=== PATIENT | male | born 1950 | race Caucasian/White ===

== ENCOUNTER 2024-06-01 06:44 | Observation (INO) ==
--- NOTE | 2024-05-21 11:32 | Anesthesiology Consultation ---
Date of Service May 21, 2024 Assessment & Plan (1) Encounter for pre-operative examination: Chart Review Chart Review: Acceptable Risk for Surgery and Patient NOT seen in Pre Admission Testing -Pt seen by KATHIA Cardio 04/06/24. Per note, "The patient is an acceptable cardiac risk to undergo a prostatectomy if that course of therapy for his prostate cancer is chosen." Infectious Disease screening: Per PAT nursing assessment on 05/21/24, No known infectious disease contacts in past 10 days or current infectious disease symptoms. No recent travel outside the country. History Surgery Operation Date: 06/01/24 07:30 Proposed Procedures p Robotic Assisted Laparoscopic Radical Retropubic Prostatectomy, Possible Open, Possible Pelvic Lymph Node Dissection - Marvel Thomson MD Height/Weight Height: 5 ft 10 in Weight: 76.204 kg Allergies Allergy/AdvReac Type Severity Reaction Status Date / Time ezetimibe [From Zetia] AdvReac Mild lose BM Verified 05/21/24 10:46 Medications Home Medications Medication Instructions Recorded Confirmed Last Taken aspirin 81 mg tablet 81 mg PO QAM 12/15/18 05/21/24 Unknown tadalafil 10 mg tablet 10 mg PO .COMPLEX PRN sexual 09/24/23 05/21/24 Unknown activity #18 tabs multivitamin 1 tab PO DAILY 03/15/24 05/21/24 Unknown evolocumab 140 mg/mL subcutaneous 140 mg subcut .q 2week #2 mL 05/10/24 05/21/24 Unknown pen injector (Catherine Wall) atorvastatin 80 mg tablet 80 mg PO QPM 05/21/24 05/21/24 Unknown olmesartan 20 mg tablet 40 mg PO QPM 05/21/24 05/21/24 Unknown Past Medical History Medical History (Updated 05/21/24 @ 11:35 by Suha Frost PA-C) Actinic keratosis, hx of BPH (benign prostatic hyperplasia) Chronic hoarseness Coronary artery disease s/p NSTEMI and prox LAD stent 01/2001 GERD (gastroesophageal reflux disease) History of COVID-19 09/2023; tx with antiviral by PCP Hyperlipidemia Hypertension Past history of myocardial infarction (01/2001) Prostate cancer dx 02/2024 Syncope (09/28/13) pt denies Past Family History Family History Father Pancreatic cancer Brother Diabetes Family/Other Vocal cord polyp Grandfather (Paternal) Myocardial infarction Sister Stroke Denies family history of Ovarian cancer Prostate cancer Breast cancer Lung cancer Colorectal cancer Past Surgical History Surgical History History of wisdom tooth extraction S/P coronary artery stent placement Proximal LAD 2000 done at [facility] S/P excision of vocal cord nodule S/P vasectomy Social History Smoking Status: Never smoker Do You Dip or Chew Tobacco: No Hx Alcohol Use: Yes Alcohol type: beer alcohol intake frequency: a few times a week Hx Substance Use: No substance use type: does not use Lab Results Anesthesia Preop Results Results Anesthesia Widget: WBC 6.53 K/ul (4.8-10.8) 05/12/24 Hgb 14.7 g/dl (14.0-18.0) 05/12/24 Hct 43.6 % (42.0-52.0) 05/12/24 Plt 164 K/uL (130-400) 05/12/24 Na 141 mmol/L (136-145) 05/12/24 K 4.0 mmol/L (3.5-5.1) 05/12/24 Cl 107 mmol/L (98-107) 05/12/24 CO2 30 mmol/L (21-32) 05/12/24 BUN 22 mg/dl (6-23) 05/12/24 Creat 1.05 mg/dl (0.6-1.4) 05/12/24 Glucose Level 99 mg/dl (70-99(Fasting)) 05/12/24 Testing Laboratory Results 05/12/24 urine culture: no growth Electrocardiogram Date: 05/12/24 Findings: + SB @ (57bpm) Chest X-Ray Date: 05/12/24 Findings: + NAD Other Testing Carotid Duplex 07/23/21: 1. <50% stenosis B/L ICAs 2. Antegrade flow b/l vertebrals Cardiac Cath 02/02/2001: (Per Cardio Note): Cardiac catheterization performed at [facility] 02/02/2001 revealed a severe proximal LAD stenosis. 50-80% long proximal LAD stenosis. No significant disease in the remainder of the LAD, right coronary artery, or left circumflex coronary artery. LV angiography with mild anterolateral hypokinesis. 4.0 x 23 mm stent deployed in proximal LAD 02/03/2001. Performed at the [facility].
--- NOTE | 2024-06-01 07:15 | History & Physical Bridge Note ---
Date of Service June 01, 2024 History & Physical Bridge Note I have examined the patient, reviewed the History & Physical and in the interval since the performance of the History & Physical I have noted the following changes of clinical significance: no changes noted
[2024-06-01] MEDS: LR 15ML/HR IV SCH (07:16)
[2024-06-01] MEDS ORDERED: PROPOFOL IV EMULSION 10 MG/ML 20 ML VIAL IV ONE ×3 (07:20→10:52)
[2024-06-01] MEDS ORDERED: MIDAZOLAM HCL 1 MG/ML 2ML VIAL ONE (07:20)
[2024-06-01] MEDS ORDERED: LIDOCAINE 2% 2 ML VIAL/AMP(20MG/ML) INFIL ONE ×2 (07:20→07:21)
[2024-06-01] MEDS ORDERED: fentaNYL citrate PF 100 MCG/2 ML VIAL ONE ×2 (07:20→10:02)
[2024-06-01] MEDS ORDERED: ROCURONIUM BROMIDE 10 MG/ML 5 ML VIAL IV ONE ×2 (07:20→10:21)
[2024-06-01] MEDS ORDERED: DEXAMETHASONE SOD INJ 4 MG/ML VIAL ONE (07:21)
[2024-06-01] MEDS ORDERED: ONDANSETRON INJ 2 MG/ML 2 ML VIAL ONE ×2 (07:21→11:59)
[2024-06-01] MEDS ORDERED: ePHEDrine sulfate 50 MG/ML AMP ONE (07:32)
[2024-06-01] MEDS ORDERED: ACETAMINOPHEN 1000 MG/100 ML IV IV ONE (07:37)
[2024-06-01] MEDS ORDERED: ATROPINE SULFATE 0.1 MG/ML 10ML SYR IV PRN (07:38)
[2024-06-01] MEDS ORDERED: ONDANSETRON INJ 2 MG/ML 2 ML VIAL IV PRN (07:38)
[2024-06-01] MEDS ORDERED: ePHEDrine sulfate 50 MG/ML AMP IV PRN (07:38)
[2024-06-01] MEDS: HEPARIN SOD (PORCINE) 5,000 UNITS/ML VIAL SQ SCH (07:42)
--- OUTSIDE RECORDS SUMMARY | 2024-06-01 07:49 | External Medical Summary | Continuity of Care Document ---
Author Name Unknown Organization [id number] Address [address] [place] [id number] Care Team Providers Care Trolley Car Operator Name Role Phone Dina Guerrero Primary Care Physician [phone] [id number] Date(s): 05/25/24 - 05/25/24 [facility] [address] [place] [id number] [facility] [address] [place] [id number] Encounter Diagnosis Left shoulder pain(Discharge Diagnosis) - 05/25/24 Discharge Disposition: Home or Self Care Attending Physician: MD Benedict Dov A Encounter Type: Clinic Allergies, Adverse Reactions, Alerts No Known Allergies Assessment and Plan Extracted from: Title:Aureliano Benedict Author:Arely Clarke Date: IMPRESSION: left shoulder pa in concern for rotator cuff injury GOAL: Decrease pain PLAN: After a lengthy discussion with the patient today regarding my above clinical findings, - RICE. - They may use Tylenol as needed for pain. - Recommend working on shoulder ROM with pendulums as demonstrated - Ordered an MRI of the left shoulder to evaluate for rotator cuff tear due to acute decreased ROM and positive drop arm. Treatment options discussed may include cortisone injection and PT vs surgery. - Follow-up after MRI The patient understood all my instructions and explanations; all their questions were satisfactorily addressed. Medications aspirin 81 mg oral tablet Start: 10/21/12 9:25:00 AM EDT, 1 tab, PO, Daily Start Date: 10/21/12 Status: Ordered Repeat number: 1 GaviLyte-C oral powder for reconstitution Start: 06/25/22 1:52:00 PM EDT Start Date: 06/25/22 Status: Ordered Repeat number: 1 Lipitor 80 mg oral tablet Start: 10/21/12 9:24:00 AM EDT, 1 tab, PO, Daily Start Date: 10/21/12 Status: Ordered Repeat number: 1 Repatha SureClick 140 mg/mL subcutaneous solution Start: 06/25/22 1:51:00 PM EDT, 140 mg = Start Date: 06/25/22 Status: Ordered Repeat number: 1 Suprep Bowel Prep Kit 1.6 g-3.13 g-17.5 g/177 mL oral liquid Start: 01/23/24 3:38:00 PM EDT, See Instructions, Disp# 354 mL, Refills: 0, Take as directed., Pharmacy: [facility]/pharmacy #[id number] Start Date: 01/23/24 Status: Ordered Quantity: 354.0 Unit: mL Repeat number: 1 Suprep Bowel Prep Kit oral liquid Start: 10/29/22 3:49:00 PM EDT, See Instructions, Disp# 1 kit, Refills: 0, Take as directed., Pharmacy: [facility] #[id number] Start Date: 10/29/22 Status: Ordered Quantity: 1.0 Unit: kit Repeat number: 1 tadalafil 10 mg oral tablet Start: 09/22/18 8:07:00 PM EDT, 1 tab, PO, Daily, PRN: as needed for erectile dysfunction Start Date: 09/22/18 Status: Ordered Repeat number: 1 Mental Status 05/25/24 Barriers to Learning one year None evide nt Mandatory Health Literacy Documentation Yes Health Literacy Communication Barriers N ever Primary Language Yemeni Problem List Condition Confirmation Course Effective Dates Status Health St atus Informant Achilles tendinitis, right leg Confirmed Active Acid reflux Confirmed Active Multiple nevi Confirmed Active CNH (chondrodermatitis nodularis helicis) Confirmed Active CAD (coronary artery disease) Confirmed Active History of actinic keratoses Confirmed Active HTN (hypertension) Confirmed Active High cholesterol Confirmed Active ED (erectile dysfunction) Confirmed Active Actinic keratoses Confirmed Active Tinea unguium Confirmed Active Left shoulder pain Confirmed Active Colon polyp Confirmed Active 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 Right elbow pain Confirmed 06/11/10 Active Seborrheic keratosis Confirmed Active Sun-damaged skin Confirmed Active Diagnosis Diagnosis Type Effective Dates Health Status inical Service Informant Left shoulder pain Discharge Diagnosis 05/25/24 Procedures Procedure Date Related Diagnosis Body Site Status Colonoscopy 1, 2, 3 02/05/24 Compl eted Colonoscopy 4, 5, 6 07/01/23 Compl eted Colonoscopy 7, 8 10/16/21 Complete d Vocal cord Surgery 2001 Comp leted Stent 2000 Completed Vasectomy 2000 Completed 1A) Colon polyp at 40 cm, polypectomy: Colonic mucosa with lymphoid aggregate and slight crypt hyperplasia, negative for dysplasia or malignancy. B) Rectosigmoid colon polyp, polypectomy: Segments of hyperplastic polyp. 2- One 3 mm polyp at 40 cm proximal to the anus, removed with a cold biopsy forceps. Resected and retrieved. - Three 2 to 3 mm polyps at the recto-sigmoid colon, removed with a cold biopsy forceps. Resected and retrieved. - A tattoo was seen in the transverse colon and at the hepatic flexure. - The examination was otherwise normal on direct and retroflexion views. 3Repeat colonoscopy in 1 year. 4Hepatic flexure polyp, polypectomy Sessile serrated polyp 5- One 12 mm polyp at the hepatic flexure, removed piecemeal using a hot snare. Resected and retrieved. This was located near the previous tattoo site. - At tattoo was noted in the transverse colon. The scar was not seen but no polyp was noted. - The examination was otherwise normal on direct and retroflexion views. 6Repeat colonoscopy in 6 months because polyp was removed piecemeal. 7COLO to cecum, 7 polyps total. 5 removed and 2 large ones bx and tattoo 8Pathology: Hepatic flexure polyp: segments of sessile serrated polyp Transverse colon polyp: Colonic mucosa with no evidence of neoplasia. Transverse colon polyp-large: Sessile serrated polyp. Colon polyps at 60 cm: Segments of sessile serrated polyp with focal cytologic atypia. Conon Polyp at 50 cm: segments of sessile serrated polyp. 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 He complains of shoulder pain starting 2 weeks ago when he fell down the stairs, reaching backwith his left shoulder to catch himself. In the past week he developed aching pain while sleeping and is now sleeping in a recliner which seems to help. With quick, jerking movements he experiences sharp pain. He is able to run without discomfort. He is having prostate surgery in a week. Review of Systems A 14 point review of systems is available in the EMR. Physical Exam Focusing on the patient'sleftupper extremity: 2+ radial pulse Sensation to light touch is intact distally Motor to the median, radial, ulnar, AIN, PIN, musculocutaneous nervesis intact. Full range of motion of their elbow, forearm, and wrist. Range of motion of the shoulder: Forward elevation can get it to 160 with drop arm at the end; Abduction 20 actively vs 160 active assisted; External rotation 45; internal rotation L2. Lift-off intact Belly-press weak but intact Provocative testing of the shoulder exhibits: +Neer +Ulrich -Crossarm testing 4/5 Abduction strength at 90 5/5 External rotation strength at 90 Diagnostic Results I obtained and personally interpreted AP, Scapular Y, and axillary views of the left shoulder takentoday and stored in [facility]eros system which shows no acute fracture or dislocation. Joint space is fairly well-maintained. There are 2 small calcifications, measuring5 mm in overall length,in the axilla on the AP view and is about 44 mm inferior the inferior border of the glenoid. Assessment/Plan IMPRESSION: left shoulder pain concern for rotator cuff injury GOAL: Decrease pain PLAN: After a lengthy discussion with the patient today regarding my above clinical findings, - RICE. - They may use Tylenol as needed for pain. - Recommend working on shoulder ROM with pendulums as demonstrated - Ordered an MRI of the left shoulder to evaluate for rotator cuff tear due to acute decreased ROM and positive drop arm. Treatment options discussed may include cortisone injection and PT vs surgery. - Follow-up after MRI The patient understood all my instructions and explanations; all their questions were satisfactorily addressed. Attestation Arely Ortiz, inocencio mayer in the presence of, Aureliano Benedict, on this date,05/25/2024 14:41:24. Problem List/Past Medical History Ongoing Achilles tendinitis, right leg Acid reflux Actinic keratoses CAD (coronary artery disease) CNH (chondrodermatitis nodularis helicis) Colon polyp ED (erectile dysfunction) Mukesh's deformity of right heel. High cholesterol History of actinic keratoses HTN (hypertension) Left shoulder pain Multiple nevi Right elbow pain Seborrheic keratosis Sun-damaged skin Tinea unguium Procedure/Surgical History Colonoscopy| Service Date: 02/05/2024olonoscopy| Service Date: 07/01/2023olonoscopy| Service Date: 10/16/2021Vocal cord Surgery| Service Date: 2001Stent| Service Date: 2000Vasectomy| Service Date: 2000 Medications aspirin(aspirin 81 mg oral tablet), 81 mg= 1 tab, PO, Daily atorvastatin(Lipitor 80 mg oral tablet), 80 mg= 1 tab, PO, Daily evolocumab(Repatha SureClick 140 mg/mL subcutaneous solution), 140 mg magnesium sulfate/potassium sulfate/sodium sulfate(Suprep Bowel Prep Kit oral liquid), See Instructions magnesium sulfate/potassium sulfate/sodium sulfate(Suprep Bowel Prep Kit 1.6 g- 3.13 g-17.5 g/177 mLoral liquid), See Instructions polyethylene glycol 3350 with electrolytes(GaviLyte-C oral powder for reconstitution) tadalafil(tadalafil 10 mg oral tablet), 10 mg= 1 tab, PO, Daily, PRN Allergies NKA Social History Smoking Status Never smoked cigarettes Alcohol - No Risk Use:Current Type:Beer Frequency:Daily Average drinks per episode in last year:1.5 Tobacco Use:Never smoker - 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 Diabetes: Unknown. Health Status Family Member(s) Recommendations Health Maintenance Pending(in the next year) OverDue Body Mass Index due06/26/23and every 366day Adult Influenza Vaccine due09/29/23and every 1year Due Adult Social Determinants of Health Screening due05/25/24Unknown Frequency Adult Tdap/Td Vaccine due05/25/24Unknown Frequency Hepatitis C Screening due05/25/24One-time only Medicare Annual Wellness Visit due05/25/24and every 1year Pneumococcal Vaccine Older Adults due05/25/24One-time only Shingles Vaccine due05/25/24One-time only Satisfied(in the past 1 year) Satisfied Body Mass Index on06/24/23.Satisfied by CHRISTINE Ceron Eryn Electronic Signature on File Electronically Reviewed/Signed by: Arely Clarke Author Signature Dt/Tm:05/25/2024 03:23 PM Electronically Reviewed/Signed by: Aureliano Benedict MD Cosigner Signature Dt/Tm: 05/25/2024 04:21 PM [facility] Department of Orthopaedics and Rehabilitation [facility] [address], [place] [address] KR Patient Care team information Care Team Personnel Name: MD Cesar, Dina Baeza Position: Referring Member Role: Primary Care Provider Address: [facility] [place] [facility] [address] [place] [address] Telecom: [phone] Care Team Related Persons Name: JOSUE CHATMAN Name: JOSUE CHATMAN"
[2024-06-01] MEDS ORDERED: KETAMINE HCL 10MG/ML SYR ONE (08:20)
[2024-06-01] MEDS: ceFAZolin 2000MG 2,000 MG/15 ML SYR IV SCH ×2 (09:45→20:17)
[2024-06-01] MEDS ORDERED: SUGAMMADEX SODIUM 200 MG/2 ML VIAL IV ONE (12:08)
[2024-06-01] MEDS: FLOSEAL HEMOSTATIC MATRIX 10ML TOP ONE (12:17)
[2024-06-01] MEDS: BUPIVACAINE 0.5 % 5 MG/1 ML MPF 30ML VIAL ONE (12:23)
--- NOTE | 2024-06-01 12:38 | Operative Report ---
PG Post Operative Report Pre & Post Diagnosis Operation Date: 06/01/24 08:05 Pre-Op Diagnosis: Malignant Neoplasm of Prostate Post-Op Diagnosis: Malignant Neoplasm of Prostate I identified the patient and participated in the time-out.: Yes Procedure Operation Date: 06/01/24 08:05 Actual Procedures p Robotic Assisted Laparoscopic Radical Retropubic Prostatectomy, Pelvic Lymph Node Dissection(Not Applicable) - Marvel Thomson MD Surgeon Marvel Thomson MD Invoice Clerk Britney Cazares Estimated Blood Loss 50 Findings Consistent with Post-Op Diagnosis Specimens 1. Periprostatic fat 2. Prostate and seminal vesicles 3. Right pelvic lymph nodes 4. Left pelvic lymph nodes Description of Procedure The patient was identified in the preoperative holding area, appropriate informed consents were reviewed and completed, and he was transported to the operating suite. Subcutaneous heparin was administered in the pre-operative holding area. Upon arrival in the operating suite, he received appropriate antibiotics and general anesthesia. He was positioned in dorsal lithotomy, a B&O suppository was inserted after digital rectal exam, and he was prepped and draped in standard fashion. A Coffey catheter was inserted in the sterile field. A Veress needle was passed per umbilicus with uniform insufflation of the abdomen to 15mmHg. He was placed in steep Trendelenburg position. A periumbilical incision was then made to accommodate a 12mm Visiport with 10mm 0degree laparoscope. Inspection of the abdomen was carried out, and there was no evidence of traumatic entry or injury secondary to the Veress needle. After confirming a clear anterior abdominal wall, ports were subsequently placed in standard robotic prostatectomy fashion without incident. To begin the robotic portion of the case, the left lateral aspect of the sigmoid was mobilized off of the left pelvic side wall to allow the pouch of Jose to be appropriately visualized. I then made an incision in the pouch of Jose, overlying the seminal vesicles. Both SVs as well as the ampullae of the vasa were entirely dissected, with the vasa transected 3cm from the prostate. The medial umbilical ligaments were then controlled with bipolar electrocautery just inferior to the umbilicus. Following cauterization, they were divided utilizing monopolar cautery. A peritoneal incision was carried from this location to the medial aspect of the internal inguinal rings bilaterally with care to avoid opening through the ring. This incision was concluded when the vas deferens was reached. Dissection of the bladder and prostate off of the posterior aspect of the pubic arch was completed allowing full visualization of the prostate. The fat overlying the prostate was removed en bloc and passed off the table as a specimen labeled "periprostatic fat". The endopelvic fascia was cleared during this portion of the procedure, and subsequently opened - first on the right and then the left. The incision through the endopelvic fascia began near the prostate-bladder junction and was carried to the apex with extreme care to preserve all lateral levator musculature as well as the periurethral musculature and sphincter complex. I additionally preserved the puboprostatic ligaments. I then controlled the DVC with a 3-0 V-lock suture in ove rlapping/figure of 8 fashion. The lymph node dissection was then conducted. External iliac vessels were identified on the pelvic side wall. The packet of fat and lymphatic tissue that resides just under the iliac vein was elevated and off of the vein with a split and roll technique. The packet was dissected laterally to the circumflex vein and distally to the obturator nerve which was preserved. The proximal aspect of the packet was carried towards the bifurcation of the iliac vessels. A combination of monopolar and bipolar cautery were used to assist with control. After completing the dissection on both sides, the packets were collected and passed off of the table as specimens labeled "pelvic lymph nodes". My attention then returned to the prostate, with identification of the bladder neck aided by gentle traction on the Coffey catheter and lateral to medial pressure at the presumed level of the bladder neck with the robotic instruments. An anterior cystotomy was made, the Coffey balloon deflated and the catheter guided through the incision to allow anterior retraction. I attempted to preserve maximal bladder neck musculature as I circumferentially dissected ashley und the bladder neck. After incision through the posterior aspect of the mucosa, the dissection was carried through detrusor muscle until the bilateral ampullae of the vasa were identified. The previously dissected vasa and SVs were brought through the incision and used to elevated the prostate anteriorly. A posterior plane behind the prostate was then developed - splitting Denonvilliers's fascia. This dissection was carried as far as possible towards the apex as well as far as possible laterally. An incision in the lateral prostatic fascia was then made bilaterally to facilitate control of the vascular pedicles and preservation of the nerve bundles, of note I was much more conservative on the left than the right. Vasculature running along the posterior/lateral aspect of the prostate was preserved as well as the tissue containing the nerves. The pedicles were then controlled with 2 clips on each side. The apical attachments of the prostate were remaining at that stage. The DVC was divided after control with bipolar cautery over the prostate. Continuous inspection from anterior and lateral views allowed me to closely follow the apical contour of the prostate and maximally preserve urethral length and tissue. The prostate was entirely freed at that point, and collected in an EndoCatch bag before being moved out of the field of vision. Hemostasis was confirmed and natasha stomosis of the bladder and urethra was completed utilizing a double armed V- Lock stitch. A new Coffey catheter was inserted and the anastomosis tested with irrigation. There was no evidence of leak. A elif style stitch was placed bilaterally to functionally marsupialize the area of the lymph node dissection. The robot was undocked, the specimen extracted through expansion of the esteban- umbilical camera port. The fascia was closed with a series of 0-PDS figure of 8 stitches. Monocryl was used to close all other skin incisions. All wounds were dressed with Dermabond. The case was concluded and the patient taken to the PACU in stable condition. Britney Cazares assisted from incision to closure. I attest to the content of the Intraoperative Record and any orders documented therein. Any exceptions are noted below.
[2024-06-01] MEDS: fentaNYL citrate PF 100 MCG/2 ML VIAL IV PRN (12:46)
[2024-06-01] MEDS: DROPERIDOL 5 MG/2 ML VIAL IV STA (12:51)
[2024-06-01 13:00] LABS: Basophils # (auto) 0.04 K/uL (0.00-0.20); Basophils % (auto) 0.6 %; Eosinophils # (auto) 0.03 K/uL (0.00-0.50); Eosinophils % (auto) 0.5 %; Hematocrit (blood only) 42.7 % (42.0-52.0); Hemoglobin 14.5 g/dl (14.0-18.0); Immature Granulocytes # (auto) 0.03 K/uL (0.01-0.20); Immature Granulocytes % (auto) 0.5 %; Lymphocytes % (auto) 12.5 %; Mean Corpuscular Hemoglobin 31.7 pg (25.0-34.0); Mean Corpuscular Volume 93.2 fL (80.0-100.0); Monocytes # (auto) 0.24 K/uL (0.11-0.59); Monocytes % (auto) 3.7 %; Neutrophils # (auto) 5.27 K/uL (1.40-6.50); Neutrophils % (auto) 82.2 %; Platelet Count 148 K/uL (130-400); RDW Coefficient of Variation 11.9 % (11.5-14.5); RDW Standard Deviation 41.2 fL (36.4-46.3); Red Blood Count 4.58 M/uL (4.70-6.10); White Blood Count 6.41 K/ul (4.8-10.8)
[2024-06-01] MEDS: DROPERIDOL 5 MG/2 ML VIAL ONE (13:05)
[2024-06-01 13:11] LABS: BUN Creatinine Ratio 18.4 (10-20); Calcium 9.1 mg/dl (8.6-10.3); Creatinine Clr Calc Pharmacy 65.9 ml/min; Potassium 4.2 mmol/L (3.5-5.1)
[2024-06-01] MEDS: HYDROmorphone INJ 1 MG/ML SYRINGE IV PRN (13:12)
[2024-06-01] MEDS ORDERED: oxyCODONE HCL IR 5 MG TAB (IMMEDIATE RELEASE) PO PRN (14:16)
[2024-06-01] MEDS ORDERED: HYDROmorphone INJ 0.5 MG/0.5 ML SYR IV PRN ×2 (14:16)
[2024-06-01] MEDS ORDERED: KETOROLAC 30 MG/ML VIAL IV PRN (14:16)
--- NOTE | 2024-06-01 14:16 | Anesthesiology Progress Note ---
Date of Service June 01, 2024 Anesthesia Post Procedure Vital Signs Vital Signs: Temp Pulse Pulse Resp BP BP Pulse Ox 06/01/24 13:50 57 L 14 133/77 94 06/01/24 13:35 36.7 C 55 L 12 153/79 H 98 06/01/24 13:25 59 L 12 137/67 97 06/01/24 13:15 58 L 12 134/89 96 06/01/24 13:05 57 L 17 149/69 H 94 06/01/24 12:55 52 L 12 156/80 H 100 06/01/24 12:45 52 L 17 144/77 H 100 06/01/24 12:38 36.3 C L 56 L 14 155/77 H 98 06/01/24 07:02 36.7 C 58 L 18 153/91 H 95 O2 Del Method O2 Flow Rate 06/01/24 13:50 Nasal Cannula 2 06/01/24 13:35 Nasal Cannula 2 06/01/24 13:25 Nasal Cannula 2 06/01/24 13:15 Nasal Cannula 2 06/01/24 13:05 Nasal Cannula 2 06/01/24 12:55 Oxymask 8 06/01/24 12:45 Oxymask 8 06/01/24 12:38 Oxymask 8 06/01/24 07:02 Room Air Pain Intensity Abdomen: Pain Intensity: 4 Transfer of Care Handoff Completed per policy Notes Mental Status: alert / awake / arousable Patient Amnestic to Procedure: Yes Nausea / Vomiting: adequately controlled Pain: adequately controlled Airway Patency, RR, SpO2: stable & adequate BP & HR: stable & adequate Hydration State: stable & adequate Anesthetic Complications: no major complications apparent and Pt Satisfied with anesthetic care
[2024-06-01] MEDS: SODIUM CHLORIDE 0.9% 1,000 ML IV SCH (15:27)
[2024-06-01] MEDS: ACETAMINOPHEN 325 MG TAB PO SCH (16:10)
[2024-06-01] MEDS: LOSARTAN POTASSIUM 50 MG TAB PO SCH (20:17)
[2024-06-01] MEDS: DOCUSATE SODIUM 100 MG CAP PO SCH (20:18)
[2024-06-01] MEDS: ATORVASTATIN 40 MG TAB PO SCH (20:18)
[2024-06-01] MEDS: HEPARIN SOD 5,000 UNIT/0.5 ML VIAL SQ SCH (20:18)
[2024-06-02 05:58] LABS: Basophils # (auto) 0.01 K/uL (0.00-0.20); Basophils % (auto) 0.1 %; Eosinophils # (auto) 0.01 K/uL (0.00-0.50); Eosinophils % (auto) 0.1 %; Hematocrit (blood only) 39.9 % (42.0-52.0); Hemoglobin 13.9 g/dl (14.0-18.0); Immature Granulocytes # (auto) 0.01 K/uL (0.01-0.20); Immature Granulocytes % (auto) 0.1 %; Lymphocytes # (auto) 0.92 K/uL (1.20-3.40); Lymphocytes % (auto) 10.3 %; Mean Corpuscular Hemoglobin 32.1 pg (25.0-34.0); Mean Corpuscular Hgb Conc 34.8 g/dL (32.0-36.0); Mean Corpuscular Volume 92.1 fL (80.0-100.0); Mean Platelet Volume 11.2 fL (9.4-12.4); Monocytes # (auto) 0.97 K/uL (0.11-0.59); Monocytes % (auto) 10.9 %; Neutrophils # (auto) 7.02 K/uL (1.40-6.50); Neutrophils % (auto) 78.5 %; Platelet Count 155 K/uL (130-400); RDW Coefficient of Variation 11.9 % (11.5-14.5); RDW Standard Deviation 40.7 fL (36.4-46.3); Red Blood Count 4.33 M/uL (4.70-6.10); White Blood Count 8.94 K/ul (4.8-10.8)
[2024-06-02 06:17] LABS: BUN Creatinine Ratio 17.6 (10-20); Calcium 8.5 mg/dl (8.6-10.3); Creatinine Clr Calc Pharmacy 74.6 ml/min; Potassium 4.2 mmol/L (3.5-5.1)
--- NOTE | 2024-06-02 08:05 | Urology Progress Note ---
Date of Service June 02, 2024 Assessment & Plan (1) Prostate cancer: Plan Postop day #1 status post robotic prostatectomy Progressing extremely well Plan for discharge home later this morning Admission and Anticipated Discharge Date Admission Date: June 01, 2024 Subjective No issues overnight Was ambulatory Pain is extremely well-controlled Physical Exam Physical Exam: Abdomen soft, incisions very appropriate, minimal erythema/skin irritation around some of themappears to be skin reaction rather than any signs of infection, etc. Results & Data Vital Signs (Past 12 Hours) Vital Signs Temp Pulse Resp BP Pulse Ox O2 Del Method 06/02/24 02:58 36.8 C 62 16 151/79 H 95 Room Air 06/01/24 23:07 36.3 C L 71 16 152/81 H 96 Room Air PG Care Time/CCT Total # of Minutes Spent Total Time Spent with Patient: Total time spent is greater than 50% in coordination of care (as documented) at patient's floor/unit and/or counseling patient: Coding Level of Care Code None Diagnoses Prostate cancer C61
[2024-06-02] MEDS: ASPIRIN 81 MG ECTAB PO SCH (08:16)
[2024-06-02] MEDS: MULTIVITAMIN TAB PO SCH (08:16)
[2024-06-02] MEDS: oxyCODONE HCL IR 5 MG TAB (IMMEDIATE RELEASE) PO PRN (09:30)
[2024-06-02] MEDS: ONDANSETRON INJ 2 MG/ML 2 ML VIAL IV PRN (09:34)
[2024-06-02 09:51] VITALS: O2SAT 95
[2024-06-02 12:15] VITALS: BP 126/58; PULSE 73; RESP 16; TEMP 97.9
--- NOTE | 2024-06-02 12:30 | Discharge Summary ---
Date of Service June 02, 2024 Admission HPI Per Admitting Provider Patient with prostate cancer here for definitive treatment. Principal Diagnosis Prostate cancer Discharge Exam Constitutional well developed and well nourished; no acute distress Respiratory normal respiratory effort; no respiratory distress and no labored breathing Gastrointestinal (Abdomen) Inspection/Auscultation: abdomen normal to inspection Musculoskeletal Head/Neck/Chest: normocephalic Neurologic moves all extremities and awake Psychiatric Orientation: alert and oriented x 3 Discharge Data Allergies Allergy/AdvReac Type Severity Reaction Status Date / Time ezetimibe [From Zetia] AdvReac Mild lose BM Verified 06/01/24 07:00 Procedures Performed Operation Date: 06/01/24 08:05 Actual Procedures p Robotic Assisted Laparoscopic Radical Retropubic Prostatectomy, Pelvic Lymph Node Dissection(Not Applicable) - Marvel Thomson MD Hospital Course (1) Prostate cancer: Plan Postop day #1 status post robotic prostatectomy Progressing extremely well Plan for discharge home later this morning Total Time Total Time Spent Total Time Spent (In Minutes): 20 Discharge Plan Discharge Items Patient Disposition: Home - Self-Care Reason For Visit: Malignant Neoplasm of Prostate Discharge Diagnosis: Malignant Neoplasm of Prostate Activity: Per Instructions section Lifting: No more than 10 pounds Bathing Comment: Okay to shower after discharge, no tub bath or soaking Sexual Activity: Wait until after follow-up appointment Exercise/Sports: Wait until after follow-up appointment Non-emergency contact: Surgeon and Urologist Call non-emergency contact if: your pain is not controlled, you have a fever, your temperature is above 101, your wound has increased redness and your wound pain has increased Follow-up/Referrals: Marvel Thomson MD [Physician] - (THE OFFICE WILL CALL YOU WITH A HOSPITAL FOLLOW UP APPT) Dina Guerrero MD [Primary Care Provider] - Diet: Regular Addtl Attending Provider Instructions: Please take all medications as prescribed and keep all follow-ups as scheduled. Please call our office at [phone] with any questions, concerns or need to reschedule appointments for any reason. We are happy to assist you. Start the antibiotic 1 day prior to scheduled catheter removal. Activity: We recommend having someone with you for the first few days after surgery to help care for you. For the first 2 weeks after surgery, we would like you to get up and walk around your house. However, we recommend limit physical activity that would increase your heart rate. This will allow your body to rest and heal. Take naps if you feel tired. Don't lift anything heavier than 10 pounds, mow the law or ride a bicycle until your follow-up appointment. Please avoid long car rides. Home Care: Unless directed otherwise, drink 6 to 8 glasses of water a day (enough to keep your urine light colored). This will also help keep a healthy flow of urine. We recommend using a stool softener for the first two weeks to avoid constipation. Coffey Catheter or Suprapubic Catheter care: Keep the catheter well secured with either a leg back or leg strap with large bag. Empty your bag when it's about half full. You may notice some blood in the bag. This is normal after surgery and while the catheter is in place. Use mild soap (such as Dove or Dial) and water to wash the catheter and the head of your penis daily, or more frequently if needed. Return to your normal diet, we encourage good protein intake to promote healing. You may shower as normal. Please avoid tub baths or soaking until catheter removed and incisions well healed. Wearing sweat pants while you have the catheter is recommended, they will be more comfortable. Follow-up Your follow up appointments for having your catheter removed, and follow up with your physician should already be scheduled. If you have any questions regarding this, please contact our office. Your final pathology report will be discussed at your physician follow-up appointment. Call [facility] at [phone] right away if you have any of the following: Chest pain or trouble breathing (call [phone] or go to the hospital) Fever of 101F or higher, uncontrolled vomiting Heavy bleeding, clots, or bright red blood from the catheter Catheter that falls out or stops draining Foul-smelling discharge from your catheter Redness, swelling, warmth, or increased pain at your incision site Drainage, pus, or bleeding from your incision Pending Studies at Discharge: Yes (pathology) Stand-Alone Forms: My [facility] Fon, Smoking Cessation Medications and DC Order Prescriptions: New sulfamethoxazole-trimethoprim [Bactrim DS] 800-160 mg tablet 1 tab PO BID Qty: 6 0RF Rx Instructions: start 1 day prior to catheter removal oxycodone-acetaminophen [Percocet] 5-325 mg tablet 1 tab PO TID PRN (Reason: pain) Qty: 7 0RF ondansetron 4 mg tablet,disintegrating 4 mg PO Q8H PRN (Reason: nausea and vomiting) Qty: 5 0RF Continued tadalafil 10 mg tablet 10 mg PO .COMPLEX PRN (Reason: sexual activity) Qty: 18 3RF Rx Instructions: 10 mg PO 1 tablet 1 hour before activity as needed Repatha SureClick 140 mg/mL pen injector 140 mg subcut .q 2week Qty: 2 11RF aspirin 81 mg tablet 81 mg PO QAM multivitamin Tablet 1 tab PO DAILY atorvastatin 80 mg tablet 80 mg PO QPM olmesartan 20 mg tablet 40 mg PO QPM acetaminophen [Tylenol] 325 mg Tablet 325 mg PO QID PRN (Reason: Pain) Discharge Orders: Discharge Order (Routine); Ordered 06/02/24 Ordered By: Britney Corona/Other Patient Handouts: DVT Post Op Prevention, Radical Prostatectomy Admission Data Admit Date/Time: 06/01/24 12:36 Attending Provider: Marvel Thomson Admit Provider: Marvel Thomson Primary Care Provider: Dina Guerrero Other Interventions: Discharge Summary Assessment (RN) Last Done: 06/02/24 13:21 Coding Level of Care Code 37111 IN/OBS DISCH 30 MIN/LESS Diagnoses Prostate cancer C61
== END 2024-06-02 14:11 | disposition home or self-care (01) ==
LOC: ASU 06:44 → 3E 12:36 → INTOOBSV 12:36